=== PATIENT | female | born 1980 | race Caucasian/White ===

== ENCOUNTER 2018-07-30 21:28 | Emergency (ER) | payer MEDICARE, MEDICAID, SELFPAY ==
[2018-07-30 21:38] VITALS: BP 174/110; PULSE 104; RESP 18; TEMP 36.5; O2SAT 98
[2018-07-30 21:56] LABS: Bilirubin Negative (Negative); Blood Moderate (Negative); Clarity Cloudy; Glucose Negative (Negative); Ketones Trace mg/dL (Negative); Leukocyte Esterase Small (Negative); Nitrite Negative (Negative); Specific Gravity >= 1.030 (1.005-1.025); Urobilinogen 0.2 EU/dL (Up TO 0.2); pH 5.5 (5-8)
--- NOTE | 2018-07-30 22:08 | W.ED.GENAD ---
Discharge Plan Disposition Patient Disposition: HOME Condition: Good Discharge Details Chief Complaint: Urinary Clinical Impression: UTI (urinary tract infection) Primary Care Provider: Susi De Leon ED Provider: Earnest Estrella Meds and New Rx's Prescriptions: New cephalexin 500 mg tablet 500 mg PO TID Qty: 14 RF: 0 Continued fexofenadine 60 MG tablet 1 tab PO DAILY RF: 0 sertraline 100 MG tablet 1 tab PO HS RF: 0 dicyclomine 20 MG tablet 1 tab PO QID RF: 0 colestipol [Colestid] 1 GM tablet 1 gm PO DAILY RF: 0 albuterol sulfate [ProAir HFA] 200 PUFF HFA aerosol inhaler 2 puff Inhalation QID Qty: 1 RF: 0 Discharge Instructions Instructions: Urinary Tract Infection in Women (ED) Additional Instructions: Drink plenty of fluids to stay hydrated. Use Pyridium for discomfort. Take antibiotic as directed. Follow-up with primary care next week for recheck. Return to ED for fever, back pain, abdominal pain, vomiting Referrals: Susi De Leon [Primary Care Provider] - Discharge Data Discharge Date/Time-TO BE ENTERED AT DEPARTURE: 07/30/18 22:22 Medical Decision Making Urine test negative. Urinalysis and urine micro consistent with UTI. Patient has no evidence of systemic illness. She is given Pyridium and Keflex here. She is given Keflex to use at home in the morning. She is given prescriptions for Pyridium and Keflex to fill tomorrow. Follow-up with primary care next week if not better. Return to ED for high fever, abdominal pain, vomiting, back pain. HPI General Mode of arrival: ambulatory. Date/Time Provider Initiated Documentation: 07/30/18 22:07. Limitations to Documentation: no limitations. Information obtained by: patient. HPI Narrative: Patient presents to ED with complaint of dysuria and frequency. Symptoms began this morning. They have increased throughout the day. She has frequent UTIs. She denies fever, vomiting, abdominal pain, back pain. Related Data Home Medications Medication Instructions Recorded Confirmed albuterol sulfate [ProAir HFA] 2 puff INHALATION QID #1 inh 01/18/15 07/30/18 colestipol [Colestid] 1 gm PO DAILY 01/18/15 07/30/18 dicyclomine 1 tab PO QID 01/18/15 07/30/18 fexofenadine 1 tab PO DAILY 01/18/15 07/30/18 sertraline 1 tab PO HS 01/18/15 07/30/18 cephalexin 500 mg PO TID #14 tab 07/30/18 Previous Rx's Medication Instructions Recorded albuterol sulfate [ProAir HFA] 2 puff INHALATION QID #1 inh 01/18/15 cephalexin 500 mg PO TID #14 tab 07/30/18 Allergies Allergy/AdvReac Type Severity Reaction Status Date / Time Sulfa (Sulfonamide Allergy Severe Itching Unverified 07/30/18 21:42 Antibiotics) Tetanus Vaccines and Toxoid Allergy Intermediate Other (See Unverified 07/30/18 21:42 Comment) enviornmental Allergy Mild cold Uncoded 01/18/15 14:29 symptoms General Stated Complaint: Urinary BLANCA: 4 Review of Systems Constitutional Denies fever(s) Gastrointestinal Denies abdominal pain, Denies nausea and Denies vomiting Genitourinary Denies hematuria, Reports urinary frequency, Reports dysuria, Denies pelvic pain and Denies flank pain Musculoskeletal Denies back pain [facility] Medical History Anxiety (Chronic) Depression (Chronic) Irritable bowel syndrome (IBS) (Chronic) Social History Smoking/Tobacco Use Status: Former Tobacco Use Drug use: Never Do you feel safe at home: Yes Do you feel safe in your relationship?: Yes Exam Const General: cooperative, comfortable and no acute distress Orientation: alert and oriented x3 Resp Effort & Inspection: normal respiratory effort GI Palpation: soft and nontender Back/Spine/Pelvis Back: no CVA tenderness Course Vital Signs Temperature 97.7 F 07/30/18 21:38 Pulse 104 H 07/30/18 21:38 Respiratory Rate 18 07/30/18 21:38 Blood Pressure 174/110 H 07/30/18 21:38 Pulse Oximetry 98 07/30/18 21:38 Temperature 97.7 F 07/30/18 21:38 Temperature Source Skin 07/30/18 21:38 Pulse 104 H 07/30/18 21:38 Respiratory Rate 18 07/30/18 21:38 Respiratory Effort Non-Labored 04/25/19 21:40 Blood Pressure 174/110 H 07/30/18 21:38 Pulse Oximetry 98 07/30/18 21:38 Pain Level 6 07/30/18 21:38 Lab/Test Results Lab/Test Results: POC- Test(urine) Negative
[2018-07-30 22:09] LABS: Bacteria Moderate HPF (Negative); C & S Indicated? Yes; Casts Negative LPF (Negative); Crystals Negative HPF (Negative); Epithelial Cells Few HPF (Negative); Mucus Moderate (Negative); Other Cells Negative (Negative)
[2018-07-30] MEDS: Cephalexin 500 MG CAP PO ×2 (22:23)
[2018-07-30] MEDS: Phenazopyridine 100 MG TAB PO (22:24)
== END 2018-07-30 22:22 | disposition home or self-care (01) ==
PROVIDERS: Emergency Provider Emergency Medicine; PCP Family Medicine
DX: N39.0 Urinary tract infection, site not specified (principal); B96.20 Unspecified Escherichia coli [E. coli] as the cause of diseases classified elsewhere
CPT/HCPCS: 81025; 87077; 99283; 81003; 81015; 87086; 87186

== ENCOUNTER 2018-10-27 11:04 | Outpatient (CLI) | payer MEDICARE, MEDICAID, SELFPAY | END 2018-10-27 11:24 | PROVIDERS: PCP Family Medicine; Visit Provider Nurse Practitioner Family | DX: N92.0 Excessive and frequent menstruation with regular cycle (principal) | CPT/HCPCS: 36415; 84443 ==

== ENCOUNTER 2018-10-27 11:45 | Outpatient (REF) | payer MEDICARE, MEDICAID, SELFPAY ==
--- NOTE | 2018-10-27 10:45 | PAPFT_PTH ---
PATIENT: Cher Soto LOC: [facility] U#:[id number] AGE/SX: 38/F ROOM: RE10/27/[address]: WARREN Borges : 1980 BED: DIS: 10/27/2018 SPEC #: [id number] RECD: 10/27/18 12:27 STATUS: SRIDEVI REQ #: [id number] VETO: 10/27/18 10:[address]: Mia Munoz DEPT: [facility] Cytology RECD BY: Tania Orellana ENTERED: 10/27/18 12:27 SP TYPE: PAPFT OTHR DR: Susi De Leon Tissues: 1 - CX/ENDOCX FOR PAP SMEARS Procedures: PAP THIN PREP/UVM Screening HPV DNA PROBE Comments: [id number]
[2018-10-28 14:45] LABS: Chlamydia Result Negative; GC Result Negative; Specimen Description CERVIX
== END 2018-10-27 12:05 ==
LOC: LBN 11:45
PROVIDERS: PCP Family Medicine; Visit Provider Nurse Practitioner Family
DX: Z11.3 Encounter for screening for infections with a predominantly sexual mode of transmission (principal); Z12.4 Encounter for screening for malignant neoplasm of cervix; Z11.51 Encounter for screening for human papillomavirus (HPV)
CPT/HCPCS: 87491; 87591; 88142; 87624

== ENCOUNTER 2018-10-28 00:47 | Outpatient (CLI) | payer MEDICARE, MEDICAID, SELFPAY ==
--- NOTE | 2018-10-28 09:47 | DI.US_ITS ---
SYMPTOM/DIAGNOSIS: MENORRHAGIA N92.0 PELVIC ULTRASOUND: Transabdominal pelvic ultrasound was performed. The patient elected to forego the transvaginal portion of the examination. The uterus measures 10 cm long x 5 cm AP x 7.6 cm transverse There is a 2.4 x 1.8 x 3 m hypoechoic mass arising from the posterior body of the uterus likely reflecting a fibroid. Adjacent to the fundus of the uterus there is a 5.1 x 4.8 x 7.3 cm hypoechoic mass and may be contiguous with the uterus and representing a fibroid. Other pelvic masses cannot be excluded. The endometrial stripe is within normal limits at 0.9 cm. Both ovaries are visualized and are grossly unremarkable. There is normal blood flow. No evidence of torsion. IMPRESSION: 1. 3 cm hypoechoic mass within the uterine body most consistent with a fibroid. 2. 5.1 x 4.8 x 7.3 cm mass adjacent to the fundus of the uterus. This may arise from the uterus and represent a fibroid. Other pelvic masses cannot be excluded. Further evaluation is warranted. An MRI or CT scan of the pelvis with contrast should be considered for further evaluation.
== END 2018-10-28 01:07 ==
PROVIDERS: PCP Family Medicine; Visit Provider Nurse Practitioner Family
DX: N92.0 Excessive and frequent menstruation with regular cycle (principal); D25.9 Leiomyoma of uterus, unspecified; R19.07 Generalized intra-abdominal and pelvic swelling, mass and lump
CPT/HCPCS: 76856

== ENCOUNTER 2018-11-04 00:56 | Outpatient (CLI) | payer MEDICARE, MEDICAID, SELFPAY ==
--- NOTE | 2018-11-04 12:49 | DI.US_ITS ---
SYMPTOMS/DIAGNOSIS: FIBROID UTERUS, D25.9, LEIOMYOMA PELVIC ULTRASOUND: A transabdominal and transvaginal examination was carried out. The uterus measures 10 cm in length, 5.1 cm in height and 6.3 cm in width with an endometrial stripe thickness of 14 mm. There are multiple nabothian cysts and there is a 3 x 2 x 2.7 cm fibroid involving the inferior portion of the uterus posteriorly. Also, there is a 4.1 x 4.7 x 4.5 cm fibroid involving the uterine fundus. A small quantity of fluid is noted in the endometrial cavity. The right ovary measures 3.6 x 2.3 x 1.9 cm, the left ovary 3.1 x 3.0 x 3.7 cm. SUMMARY: Uterine fibroids are noted. The examination is otherwise essentially unremarkable.
== END 2018-11-04 01:16 ==
PROVIDERS: PCP Family Medicine; Visit Provider Nurse Practitioner Family
DX: D25.9 Leiomyoma of uterus, unspecified (principal); N88.8 Other specified noninflammatory disorders of cervix uteri
CPT/HCPCS: 76830; 76856

== ENCOUNTER 2020-07-06 20:26 | Outpatient (REF) | payer MEDICARE, MEDICAID, SELFPAY | END 2020-07-06 20:27 | disposition home or self-care (01) | LOC: NCHCN 20:26 | PROVIDERS: PCP Family Medicine; Visit Provider Family Medicine | DX: R30.0 Dysuria (principal) | CPT/HCPCS: 87086 ==

== ENCOUNTER 2020-07-26 21:27 | Outpatient (REF) | payer MEDICARE, MEDICAID, SELFPAY ==
[2020-07-26 21:44] LABS: HCT 35.9 % (36.0-46.0); HGB 10.6 g/dL (11.2-15.7); MCHC 29.5 % (32.0-36.0); MPV 9.4 fL (8.0-11.0); Platelet Count 473 10^3/uL (130-400); RBC 5.02 10^6/uL (3.93-5.22); RDW-SD 50.5 fL; WBC 6.74 10^3/uL (4.4-10.8)
[2020-07-26 22:03] LABS: ALT 196 U/L (14-59); AST 196 U/L (15-37); Albumin 4.2 g/dL (3.4-5.0); Alkaline Phosphatase 73 U/L (46-116); Anion Gap 11.5 mmol/L (3-11); BUN 11 mg/dL (7-18); Bilirubin, Total 0.6 mg/dL (0.2-1.0); CO2 28.5 mmol/L (21.0-32.0); CREATININE 0.8 mg/dL (0.55-1.02); Calcium 9.2 mg/dL (8.5-10.1); Calculated LDL 91 mg/dL (<100); Chloride 101 mmol/L (98-107); Cholesterol 169 mg/dL (<200); Glucose 96 mg/dL (74-106); HDL Cholesterol 62 mg/dL (40-60); Potassium 3.8 mmol/L (3.5-5.1); Sodium 141 mmol/L (136-145); Total Protein 8.5 g/dL (6.4-8.2); Triglyceride 81 mg/dL (<150)
[2020-07-26 22:45] LABS: MCH 21.1 pg (27.0-33.0); MCV 71.5 fL (80-95); RDW 20.3 % (11.7-14.6)
== END 2020-07-26 21:28 | disposition home or self-care (01) ==
LOC: NCHCN 21:27
PROVIDERS: PCP Family Medicine; Visit Provider Family Medicine
DX: I10 Essential (primary) hypertension (principal); R53.83 Other fatigue; N92.0 Excessive and frequent menstruation with regular cycle
CPT/HCPCS: 80053; 80061; 85027; 84443

== ENCOUNTER 2020-08-13 15:12 | Emergency (ER) | payer MEDICARE, MEDICAID, SELFPAY ==
[2020-08-13 15:16] VITALS: BP 151/92; PULSE 102; RESP 18; TEMP 36.2; O2SAT 100
--- NOTE | 2020-08-13 15:26 | W.ED.GENAD ---
Discharge Plan Disposition Patient Disposition: HOME Condition: Good Discharge Details Clinical Impression: Cystitis Primary Care Provider: Susi De Leon ED Provider: Tania Knox Home Meds and New Rx's Prescriptions: New cephalexin 500 mg capsule 500 mg PO BID 7 Days Qty: 14 RF: 0 phenazopyridine [Pyridium] 200 mg tablet 200 mg PO TID PRNQty: 7 RF: 0 No Action Viibryd 40 mg tablet 40 mg PO DAILY RF: 0 dicyclomine 20 MG tablet 1 tab PO QID RF: 0 colestipol [Colestid] 1 GM tablet 1 gm PO DAILY RF: 0 albuterol sulfate [ProAir HFA] 200 PUFF HFA aerosol inhaler 2 puff Inhalation QID Qty: 1 RF: 0 dextroamphetamine-amphetamine [Adderall] 20 mg tablet 20 mg PO BID RF: 0 lisinopril 10 mg tablet 10 mg PO DAILY RF: 0 norethindrone ac-eth estradiol 1-20 mg-mcg tablet 1 tab PO DAILY RF: 0 Vraylar 1.5 mg capsule 4 mg PO DAILY RF: 0 loratadine [Claritin] 10 mg Tablet 10 mg PO DAILY RF: 0 cranberry 400 mg Capsule RF: 0 Discharge Instructions Additional Instructions: Please follow-up with your primary care physician in 1 to 2 days for reevaluation Should you have flank pain, fever, chills, inability to take your medication, please return earlier for reevaluation Should you have recurrent urinary tract infection, I recommend following up with urology Discharge Data Discharge Date/Time-TO BE ENTERED AT DEPARTURE: 08/13/20 16:16 Medical Decision Making Negative test Unfortunately patient's initial specimen was contaminated repeat specimen (four Urine culture pending Patient will need close outpatient follow-up with primary care physician and given recurrence of symptoms perhaps a urology consultation Patient declines any additional complaints at this time her risk of sexually transmitted disease She given the threshold to return with new or worsening complaints She started on Keflex twice a day empirically I Do Not See a Prior Urine Culture and Patient's Previous history Recheck in 1 week recommended Differential Diagnosis Differential Diagnosis: Ureterolithiasis, cystitis, , sexually transmitted disease Medical Records Medical records reviewed: Yes I reviewed the patient's medical records. Lab Data Lab results reviewed: Yes I reviewed the patient's lab results. HPI General Mode of arrival: ambulatory. Date/Time Provider Initiated Documentation: 08/13/20 15:17. Limitations to Documentation: no limitations. Information obtained by: patient. HPI Narrative: This 40-year-old female presents with 4-day history of urinary frequency and presents today secondary actual burning today. She denies any fever or chills. She denies flank pain. Pain is exacerbated with urination. She denies history of kidney stones. She denies any vaginal discharge or risk of sexually transmitted disease. She denies any chance of . She denies any actual abdominal pain. She reports suprapubic tenderness is partially alleviated post urination. Related Data Home Medications Medication Instructions Recorded Confirmed albuterol sulfate [ProAir HFA] 2 puff INHALATION QID #1 inh 01/18/15 08/13/20 colestipol [Colestid] 1 gm PO DAILY 01/18/15 08/13/20 dicyclomine 1 tab PO QID 01/18/15 08/13/20 vilazodone 40 mg tablet 40 mg PO DAILY 10/27/18 08/13/20 cariprazine [Vraylar] 4 mg PO DAILY 08/13/20 08/13/20 cephalexin 500 mg PO BID 7 Days #14 cap 08/13/20 cranberry mg 08/13/20 dextroamphetamine-amphetamine 20 mg PO BID 08/13/20 08/13/20 [Adderall] lisinopril 10 mg PO DAILY 08/13/20 08/13/20 loratadine [Claritin] 10 mg PO DAILY 08/13/20 08/13/20 norethindrone ac-eth estradiol 1 tab PO DAILY 08/13/20 08/13/20 phenazopyridine [Pyridium] 200 mg PO TID PRN #7 tab 08/13/20 Previous Rx's Medication Instructions Recorded albuterol sulfate [ProAir HFA] 2 puff INHALATION QID #1 inh 01/18/15 cephalexin 500 mg PO BID 7 Days #14 cap 08/13/20 phenazopyridine [Pyridium] 200 mg PO TID PRN #7 tab 08/13/20 Allergies Allergy/AdvReac Type Severity Reaction Status Date / Time Sulfa (Sulfonamide Allergy Severe Itching Verified 08/13/20 15:22 Antibiotics) Tetanus Vaccines and Toxoid Allergy Intermediate Other (See Verified 08/13/20 15:22 Comment) enviornmental Allergy Mild cold Uncoded 08/13/20 15:22 symptoms General Stated Complaint: Urinary BLANCA: 4 Review of Systems Narrative: Review of systems obtained x7 aside from where indicated in HPI [facility] Medical History (Updated 08/13/20 @ 15:57 by NAOMI Kovacs) Anxiety Depression Irritable bowel syndrome (IBS) Social History (Updated 10/27/18 @ 10:53 by Mia Munoz NP) Smoking/Tobacco Use Status: Former Tobacco Use Smoking risk assessment performed?: Yes Drug use: Never Substance use type: does not use current occupation: Disability - Mental health issues Do you feel safe at home: Yes Do you feel safe in your relationship?: Yes History History 1 Para 1 Hx # Term Pregnancies Multiple births Hx # Pregnancies Ectopic pregnancies AB induced Hx Number of Living Children AB spontaneous Exam Const General: cooperative and comfortable Orientation: alert and oriented x3 GI Other: No CVA tenderness, no abdominal tenderness Skin General skin exam: no rashes or lesions noted Course Vital Signs Vital signs: Vital Signs Temperature 36.2 C L 08/13/20 15:16 Pulse 102 H 08/13/20 15:16 Respiratory Rate 18 08/13/20 15:16 Blood Pressure 151/92 H 08/13/20 15:16 Pulse Oximetry 100 08/13/20 15:16 Temperature 36.2 C L 08/13/20 15:16 Temperature Source Skin 08/13/20 15:16 Pulse 102 H 08/13/20 15:16 Respiratory Rate 18 08/13/20 15:16 Respiratory Effort Non-Labored 08/13/20 15:17 Blood Pressure 151/92 H 08/13/20 15:16 Blood Pressure Position Sitting 08/13/20 15:16 Pulse Oximetry 100 08/13/20 15:16 Oxygen Delivery Method Room Air 08/13/20 15:16 Oxygen Flow Rate 0 08/13/20 15:16 Pain Level 4 08/13/20 15:16 Lab/Test Results Lab/Test Results: POC- Test(urine) Negative
[2020-08-13 15:27] LABS: Bilirubin Negative (Negative); Blood Large (Negative); Clarity Cloudy (Clear); Glucose Negative (Negative); Ketones Negative (Negative); Leukocyte Esterase Large (Negative); Nitrite Negative (Negative); Urobilinogen 0.2 EU/dL (Up TO 0.2)
[2020-08-13 15:37] LABS: RBC >50 HPF (0-2); WBC >50 HPF (0-5)
[2020-08-13 15:38] LABS: Bacteria Many HPF (Negative); C & S Indicated? No/Sq. Contamination; Casts Negative LPF (Negative); Crystals Negative HPF (Negative); Epithelial Cells Many HPF (Negative); Mucus Negative (Negative)
[2020-08-13 16:03] LABS: Epithelial Cells Few HPF (Negative); WBC >50 HPF (0-5)
[2020-08-13 16:04] LABS: Bacteria Many HPF (Negative); C & S Indicated? Yes
== END 2020-08-13 16:16 | disposition home or self-care (01) ==
PROVIDERS: Emergency Provider Physician Assistant; PCP Family Medicine
DX: N30.80 Other cystitis without hematuria (principal)
CPT/HCPCS: 81025; 99283; 81003; 81015; 87086

== ENCOUNTER 2020-08-24 12:25 | Outpatient (REF) | payer MEDICARE, MEDICAID, SELFPAY ==
[2020-08-24 20:57] LABS: HCT 36.6 % (36.0-46.0); HGB 10.6 g/dL (11.2-15.7); MCH 21.1 pg (27.0-33.0); MCV 72.8 fL (80-95); MPV 9.6 fL (8.0-11.0); Platelet Count 460 10^3/uL (130-400); RBC 5.03 10^6/uL (3.93-5.22); RDW 21.1 % (11.7-14.6); RDW-SD 52.5 fL; WBC 5.95 10^3/uL (4.4-10.8)
[2020-08-24 21:11] LABS: ALT 80 U/L (14-59); AST 59 U/L (15-37); Albumin 3.8 g/dL (3.4-5.0); Alkaline Phosphatase 65 U/L (46-116); Bilirubin, Direct 0.2 mg/dL (0.0-0.2); Bilirubin, Total 0.4 mg/dL (0.2-1.0); Total Protein 7.8 g/dL (6.4-8.2)
== END 2020-08-24 12:26 | disposition home or self-care (01) ==
LOC: NCHCN 12:25
PROVIDERS: PCP Family Medicine; Visit Provider Family Medicine
DX: I10 Essential (primary) hypertension (principal); R53.83 Other fatigue; E66.9 Obesity, unspecified
CPT/HCPCS: 80076; 85027

== ENCOUNTER 2021-05-30 18:09 | Outpatient (REF) | payer MEDICARE, MEDICAID, SELFPAY | END 2021-05-30 18:10 | disposition home or self-care (01) | LOC: LBN 18:09 | PROVIDERS: PCP Family Medicine; Visit Provider Physician Assistant Medical | DX: N39.0 Urinary tract infection, site not specified (principal) | CPT/HCPCS: 87086 ==